=== PATIENT | male | born 1965 | race Caucasian/White ===

== ENCOUNTER 2020-02-02 08:30 | Emergency (ER) | payer BC ==
[2020-02-02 08:51] VITALS: PULSE 61
[2020-02-02] MEDS ORDERED: Ibuprofen 600 MG Tab PO ONE (08:51)
--- NOTE | 2020-02-02 08:57 | EDM.PDOC ---
ED HPI GENERAL MEDICAL PROBLEM - General Chief Complaint: Upper Extremity Injury/Pain Stated Complaint: RT SHOULDER PAIN Time Seen by Provider: 02/02/20 08:36 Source of Information: Reports: Patient - History of Present Illness INITIAL COMMENTS - FREE TEXT/NARRATIVE: History of present illness: 54-year-old male presenting with right shoulder pain which the patient reports is somewhat ongoing for years but worsened yesterday while playing soccer with his kids he was throwing the ball a lot. Located right over the right AC joint. Worse with range of motion and lifting of the arm. Better at rest. He does report that he has had this before and had helped putting muscle rub on there. He has not had any other symptoms including no chest pain, difficulty breathing, back pain, abdominal pain, headache or any other symptoms. He does have diffuse chronic skin discoloration consistent with vitiligo for which he does not take medications and had previously seen a doctor who told him it was nothing to be concerned about. It is not in the area that is hurting him. Review of systems: As per history of present illness and below otherwise all systems reviewed and negative. Past medical history: As per history of present illness and as reviewed below otherwise noncontributory. Surgical history: As per history of present illness and as reviewed below otherwise noncontributory. Social history: No reported history of drug abuse. Occasional alcohol, 1-2 beers after work. No tobacco Family history: As per history of present illness and as reviewed below otherwise noncontributory. Physical exam: GEN: no acute distress, well appearing HEENT: Atraumatic, normocephalic, mucous membranes moist Neck: supple, nontender, trachea midline. No bony tenderness Lungs: No respiratory distress. No chest wall tenderness Heart: RRR Abdomen: Soft, nondistended, nontender. Back: nontender, no midline tenderness Extremities: Tender to palpation over the right AC joint. Pain with range of m otion and flexion of the right shoulder. No weakness. No decreased sensation. Neurovascularly intact. Remainder of extremities are nontender and unremarkable Neuro: Awake, alert, oriented. Neuro Exam nonfocal. Skin: warm, dry, abnormal pigmentation consistent with vitiligo Diagnostics: Right shoulder x-ray Therapeutics: Ibuprofen MDM: Referral to orthopedics and primary care for outpatient follow-up and physical therapy Impression: AC strain Plan: [] Definitive disposition and diagnosis as appropriate pending reevaluation and review of above. Right Shoulder Pain Score (Numeric/FACES): 9 - Related Data Allergies Allergy/AdvReac Type Severity Reaction Status Date / Time No Known Allergies Allergy Verified 02/02/20 08:51 Home Meds: Home Meds . [No Known Home Meds] 02/02/20 [History] Past Medical History - Past Health History Medical/Surgical History: Denies Medical/Surgical History Social & Family History - Family History Family Medical History: Noncontributory Endocrine/Metabolic: Reports: Diabetes, type II - Caffeine Use Caffeine Use: Reports: Coffee, Soda Review of Systems - Review of Systems Review Of Systems: See Below (See HPI) ED EXAM, GENERAL - Physical Exam Exam: See Below (See HPI) Course - Vital Signs Text/Narrative:: Tender to palpation over the right AC. Pain also located at this area with no radiation. Intact though painful range of motion of the shoulder. 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 Pain is chronic but worsened after playing soccer yesterday with his children. We will have patient start NSAIDs and refer to orthopedic and primary care for outpatient evaluation, ongoing treatment and likely referral to physical therapy. X-ray does show degenerative changes of the AC joint, consistent with the patient's chronic and acute pain. Last Recorded V/S: Last Vital Signs Temp 98.2 F 02/02/20 08:46 Pulse 61 02/02/20 08:46 Resp 18 02/02/20 08:46 BP 137/87 02/02/20 08:46 Pulse Ox 96 02/02/20 08:46 - Orders/Labs/Meds Meds: Medications Discontinued Medications Generic Name Dose Route Start Last Admin Trade Name Freq PRN Reason Stop Dose Admin Ibuprofen 600 mg 02/02/20 08:51 02/02/20 09:11 Motrin PO 02/02/20 08:52 600 mg ONETIME ONE Administration - Re-Assessments/Exams Free Text/Narrative Re-Assessment/Exam: 02/02/20 09:50 Results discussed with patient. Copy of x-ray report given to patient to bring to outpatient follow-up appointment. Departure - Departure Time of Disposition: 09:50 Disposition: Home, Self-Care 01 Clinical Impression: Acromioclavicular joint arthritis Strain of AC joint Qualifiers: Encounter type: initial encounter Laterality: right Qualified Code(s): S46.911A - Strain of unspecified muscle, fascia and tendon at shoulder and upper arm level, right arm, initial encounter - Discharge Information Instructions: Preventing Osteoarthritis, Adult, Arthritis, [id number], Shoulder Pain, [id number], Muscle Strain, [id number], What You Need to Know About Osteoarthritis, Pain Medicine Instructions, [id number], How to Use Cold Therapy, Tendinitis, [id number] Referrals: PCP,None [Primary Care Provider] - Forms: ED Department Discharge Additional Instructions: Your shoulder pain is located primarily at the acromioclavicular joint. This may be an overuse injury or ligament/muscle strain. Please use ibuprofen 600 mg every 8 hours for the next 2 to 3 days. You may also ice the area and do some gentle stretching movements of the area. Please follow-up with your primary care physician or 1 of the primary care clinics listed below as well as the orthopedic clinic listed below soon as possible. You will likely need physical therapy. This can be referred from either of the doctors listed below. The following information is given to patients seen in the emergency department who are being discharged to home. This information is to outline your options for follow-up care. We provide all patients seen in our emergency department with a follow-up referral. The need for follow-up, as well as the timing and circumstances, are variable depending upon the specifics of your emergency department visit. If you don't have a primary care physician on staff, we will provide you with a referral. We always advise you to contact your personal physician following an emergency department visit to inform them of the circumstance of the visit and for follow-up with them and/or the need for any referrals to a consulting specialist. The emergency department will also refer you to a specialist when appropriate. This referral assures that you have the opportunity for follow-up care with a specialist. All of these measure are taken in an effort to provide you with optimal care, which includes your follow-up. Under all circumstances we always encourage you to contact your private physician who remains a resource for coordinating your care. When calling for follow-up care, please make the office aware that this follow-up is from your recent emergency room visit. If for any reason you are refused follow-up, please contact the [facility] Emergency Department at and asked to speak to the emergency department charge nurse. [facility] - Primary Care [address] [address] [address] [facility] Professional Building [address] [place] [address], [address] [place] [address] Sepsis Event Note (ED) - Evaluation Sepsis Screening Result: No Definite Risk - Focused Exam Vital Signs: Vital Signs Temp Pulse Resp BP Pulse Ox 02/02/20 08:46 98.2 F 61 18 137/87 96
--- NOTE | 2020-02-02 09:48 | CR ---
Right shoulder: 3 views of the right shoulder were obtained. Comparison: No previous shoulder study. Mild degenerative change is seen within the acromioclavicular joint. Small bony density seen this within the superior acromioclavicular joint believed to be dystrophic. Glenohumeral joint is normal. No acute fracture, dislocation or other bony abnormality is appreciated. Impression: 1. Slight degenerative change within the acromioclavicular joint. 2. Right shoulder study is otherwise unremarkable. Diagnostic code #2 This report was dictated in MDT
[2020-02-02 10:05] VITALS: BP 139/82
== END 2020-02-02 10:03 | disposition home or self-care (01) ==
LOC: MW.ED 08:30
DX: S46.911A Strain of unspecified muscle, fascia and tendon at shoulder and upper arm level, right arm, initial encounter (principal); M13.811 Other specified arthritis, right shoulder; X58.XXXA Exposure to other specified factors, initial encounter; Y93.66 Activity, soccer
CPT/HCPCS: 73030; 99283; A9270